=== PATIENT | male | born 1945 | race Asian ===

== ENCOUNTER → 2019-04-17 | Outpatient (CLI) | payer MEDICARE, MEDICAID ==
[~2019-04-17] MED LIST: METO50 PO; PANT40TA25 PO; VALS160T2 PO; WARF2 PO
== END | disposition home or self-care (01) ==
LOC: RADPV 11:50
PROVIDERS: ATTEND Internal Medicine Cardiovascular Disease
DX: R76.11 Nonspecific reaction to tuberculin skin test without active tuberculosis (principal)